=== PATIENT | female | born 1985 | race Caucasian/White ===

== ENCOUNTER 2017-05-29 20:42 | Emergency (ER) | payer SELFPAY ==
[~2017-05-29] VITALS: Ht 175.3 cm; Wt 118.8 kg
[~2017-05-29 20:42] MED LIST: ACETAMINOPHEN/H1 TA6 PO; COL100 PO; DOXYCYCLINE MO100 MG PO; FER300 PO; LAC PO; MOTRIN800 MG PO; NATURAL IRON65 MG; VITAMIN C500 M4 PO; ZOFRAN ODT4 MG PO
[2017-05-29 23:51] VITALS: BP 136/70
== END 2017-05-29 23:51 | disposition home or self-care (01) ==
LOC: ED 20:42
DX: S46.811A Strain of other muscles, fascia and tendons at shoulder and upper arm level, right arm, initial encounter (principal); Z86.2 Personal history of diseases of the blood and blood-forming organs and certain disorders involving the immune mechanism; X58.XXXA Exposure to other specified factors, initial encounter; Y93.89 Activity, other specified; Y92.89 Other specified places as the place of occurrence of the external cause; Y99.8 Other external cause status
CPT/HCPCS: 82962; J1885